=== PATIENT | female | born 1960 | race Two or more races ===

== ENCOUNTER 2020-09-26 02:03 | Emergency (ER) | payer OTHER ==
[~2020-09-26] VITALS: Ht 152.4 cm; Wt 68.0 kg
[2020-09-26 04:59] VITALS: BP 135/88
[2020-09-26] MEDS ORDERED: KETOROLAC TROMETH 60MG/2ML VIAL IM ONE (05:00)
== END 2020-09-26 05:41 | disposition home or self-care (01) ==
LOC: ER 02:03 → EDBD 02:03 → ER 05:41
DX: R07.89 Other chest pain (principal); V49.9XXA Car occupant (driver) (passenger) injured in unspecified traffic accident, initial encounter; Y93.89 Activity, other specified; Y92.89 Other specified places as the place of occurrence of the external cause; Y99.8 Other external cause status
CPT/HCPCS: 71250; 73590; 74176; 93005; 96372; 99285; J1885